=== PATIENT | female | born 1995 | race Caucasian/White ===

== ENCOUNTER 2018-10-30 15:51 | Outpatient (CLI) | payer OTHER ==
--- NOTE | 2018-10-30 16:38 | MRI ---
3-D [id number] [place] [facility]. HISTORY: Chronic headaches. Evaluate for arteriovenous malformation. Noncontrast enhanced [place] [facility] images obtained. Normal flow seen in the right and left ICA, YUSEF, MCA, vertebral arteries, basilar artery and posterio r cerebral arteries. Posterior communicating arteries are unremarkable. No significant evidence of intracranial vascular abnormality seen. IMPRESSION: normal [place] [facility].
--- NOTE | 2018-10-30 17:57 | MRI ---
BRAIN MRI WITHOUT IV CONTRAST: History: Chronic migraine with D43.719; history of migraine headaches for years; history of prior head injurie s with compression. FINDINGS: Multiplanar, multisequence imaging performed without IV contrast. There is extensive sinus mucosal di sease involving the frontal, ethmoid, maxillary, and sphenoid sinuses, evidence for chronic zimmerman sinus itis and associated mucosal disease. No focal mass or midline shift. No intra or extraaxial hemorrhag e. No evidence for an acute infarct. No evidence for focal demyelination or dysmyelination. IMPRESSION: Extensive chronic zimmerman sinus mucosal disease. No significant acute intracranial process. POS: [facility]AS[facility]
== END 2018-10-30 15:52 | disposition home or self-care (01) ==
LOC: MRI 15:51
DX: G43.719 Chronic migraine without aura, intractable, without status migrainosus (principal); M54.2 Cervicalgia; Q28.2 Arteriovenous malformation of cerebral vessels; J32.9 Chronic sinusitis, unspecified
CPT/HCPCS: 70544; 70551